=== PATIENT | male | born 1970 | race Caucasian/White ===

== ENCOUNTER → 2017-11-16 | Day surgery (SDC) | payer OTHER ==
[~2017-11-16] VITALS: Ht 167.6 cm; Wt 104.3 kg
[~2017-11-16] MED LIST: AUGMENTIN 875875 MG PO; CIPRO 500MG TA500 MG PO; ECOTRIN81 MG PO; FLAG500 PO; MULTIVITAMIN1 TAB PO; PERCOCET 325 MG1 TA2 PO; TYLENOL 8 HOUR650 MG PO
--- NOTE | 2017-11-16 16:24 | Operative Report ---
Operative/Inv Procedure Report Surgery Date: 11/16/17 Name of Procedure: Robotic ventral hernia repair with mesh Pre-Operative Diagnosis: Incarcerated ventral hernia Post-Operative Diagnosis: Same Estimated Blood Loss: scant Surgeon/[place] [employer] Core Feeder: Adam MAO,Augustin Doyle/Katherine SUNG Anesthesia: general endotracheal tube Implants: 10 x 15 cm Parietex mesh Operative Indication: 47-year-old male with long-standing but growing incarcerated ventral hernia. CT scan performed 3 years ago shows 2 ventral hernia defects. Operative/Procedure Note Note: After consent is brought to the operative laid supine. Gen. anesthesia was obtained and his abdomen was prepped and draped. Skin and left upper quadrant was after local anesthesia and a incision made sharply. We gained access to the peritoneum using a 12 mm optical trocar. 28 mm ports were then placed in left lower quadrant after local anesthesia was instilled and under direct vision the camera. There were 2 fascial defects one just above the umbilicus and the other in the epigastrium. We docked the robot and grasper and scissor placed. Began dissection by taking down the near side peritoneal tissue and dissecting off the fat from the anterior abdominal wall. We started the falciform ligament and down to the infra-umbilical region. Currently back and forth until I could deliver both hernia contents. Both contained incarcerated intra-and extraperitoneal fat. The superior defect measured 1 cm. The inferior 1 measured 2 cm. Both were closed transversely with absorbable 0 V lock suture. We then placed a piece of 10 x 15 cm Parietex mesh into the cavity to cover both defects. It was anchored centrally with a Curtis needle and then 2-0 V lock sutures were placed at the superior and inferior ends. Then ran the mesh to the fascia with the sutures circumferentially. A total of 4 sutures were necessary. The last one incorporated the midline to keep the mesh adhered on the midline fascia. Brandon were then cut and extracted. Once were happy with the repair ports were delivered and pneumoperitoneum evacuated. The fascia and left upper quadrant was closed with 0 Vicryl suture. Skin incisions closed with 4-0 Vicryl. Steri-Strips and sterile dressing applied. Sponge and needle counts are correct Findings: 2 fascial defects repaired with 10 x 15 cm Parietex CC: Keya MAO,Calin Henderson
== END ==
LOC: STS 02:29
DX: K43.6 Other and unspecified ventral hernia with obstruction, without gangrene (principal); G47.30 Sleep apnea, unspecified; E66.9 Obesity, unspecified; Z68.39 Body mass index [BMI] 39.0-39.9, adult
CPT/HCPCS: C1781; J0690; J2250; J3490